=== PATIENT | female | born 1995 | race Caucasian/White ===

== ENCOUNTER → 2020-03-12 | Outpatient (CLI) | payer BC ==
--- NOTE | 2020-03-12 13:15 | NEURO WORKBENCH EEG REPORT ---
EEG Report Patient: Lillian House ID: [id number] Referring Doctor: Star Tirado MD DOS: 03/12/2020 Medications: None History This is a 24 year old right handed female with a history of absence seizures since 2015, ADHD. This EEG was requested for seizures. EEG Interpretation This EEG was recorded in the awake, drowsy, and sleep states. The awake EEG is characterized by a well-organized background with a well-developed and reactive posterior dominant rhythm of 10 Hz. The remainder of the background was characterized by a combination of alpha with some beta frequencies. There was prominent mu present. There were sharply contoured waveforms in the central region most consistent with mu. Drowsiness was characterized by slowing of the background rhythms. Vertex waves and sleep spindles were seen in the midline head regions. Photic stimulation resulted in a good driving response. Hyperventilation resulted in generalized slowing of the background. There were no epileptiform abnormalities. The EKG showed a regular rhythm. EEG Classification * Normal EEG Impression This EEG is within normal limits for age. INTERPRETING NEUROLOGIST: Cait Stoner MD, FRCPC Board Certified in Neurology, with special qualification in Child Neurology, and in Clinical Neurophysiology [facility]
== END ==
LOC: NEURO 07:44
PROVIDERS: ATTEND Internal Medicine
DX: G40.A09 Absence epileptic syndrome, not intractable, without status epilepticus (principal)
CPT/HCPCS: 95819